=== PATIENT | female | born 1995 | race Caucasian/White ===

== ENCOUNTER 2021-09-04 21:50 | Emergency (ER) | payer SELFPAY ==
[~2021-09-04] VITALS: Ht 170.2 cm; Wt 62.0 kg
[2021-09-05] MEDS ORDERED: LORAZEPAM 2MG/ML CPJ IV STA (00:13)
[2021-09-05] MEDS ORDERED: SODIUM CHLORIDE 0.9% 1,000 ML IV ONE (00:15)
[2021-09-05 00:44] LABS: BASOPHILS % 0.4 % (0.0-2.0); EOSINOPHILS % 0.1 % (0.0-5.0); HEMATOCRIT. 41.2 % (36.0-48.0); HEMOGLOBIN. 13.5 g/dL (12.0-16.0); LYMPHOCYTES % 11.1 % (20.0-50.0); MEAN CORPUSCULAR HEMOGLOBIN 27.8 pg (28.0-32.0); MEAN CORPUSCULAR VOLUME 84.5 fL (81.0-99.0); MEAN PLATELET VOLUME 6.9 fl (7.4-10.4); MONOCYTES % 2.5 % (2.0-8.0); NEUTROPHILS % 85.9 % (40.0-76.0); PLATELET 279 x1000/uL (130-400); RED BLOOD CELL COUNT 4.88 mill/uL (4.2-5.4); RED CELL DISTRIBUTION WIDTH 13.8 % (11.6-14.6)
[2021-09-05 00:47] LABS: CHLORIDE 105 mEq/L (98-107)
[2021-09-05 00:51] LABS: ETHANOL BLOOD < 10 mg/dL
[2021-09-05 03:25] VITALS: BP 112/56
== END 2021-09-05 03:20 | disposition home or self-care (01) ==
LOC: ER 21:50
DX: R42 Dizziness and giddiness (principal); Z88.0 Allergy status to penicillin
CPT/HCPCS: 36415; 80053; 80307; 80320; 80329; 85025; 93005; 96361; 96374; 99284; J2060; J7030; Z7610; G0480